=== PATIENT | female | born 1985 | race Caucasian/White ===

== ENCOUNTER 2016-05-20 11:49 | Emergency (ER) | payer BC ==
[2016-05-20] MEDS ORDERED: ORPHENADRINE CITRATE 60MG/2ML VIAL IM ONE (14:02)
[2016-05-20] MEDS ORDERED: KETOROLAC 30 MG/ML VIAL IM ONE (14:02)
--- NOTE | 2016-05-20 14:11 | Emergency Department Record ---
History of Present Illness - General Chief Complaint: Back Pain/Injury Stated Complaint: BACK/NECK PAIN Time Seen by Provider: 05/20/16 12:51 Source: Patient Mode of Arrival: Ambulatory Limitations: No limitations - History of Present Illness Initial Comments: pt has had midline upper back pain for 3 days. she has no known injury. MD Complaint: Back pain Onset/Timin -: Days(s) Similar Symptoms Previously: No Place: Home Radiation: None Severity: Moderate Severity scale (1-10): 7 Quality: Other Consistency: Constant Improves With: Medication Worsens With: None Context: Unknown Associated Symptoms: Denies other symptoms Treatments Prior to Arrival: NSAIDS - Related Data Home Medications Medication Instructions Recorded Confirmed Last Taken Famotidine [Pepcid] 20 mg PO 05/20/16 Unknown Omeprazole [Prilosec] 20 mg PO DAILY 05/20/16 05/20/16 05/20/16 Prenat Vit Comb.10/Iron/FA/Dha 1 tab PO DAILY 05/20/16 05/20/16 05/20/16 [Vitafol-Ob+Dha Combo Pack] Sertraline HCl [Zoloft] 200 mg PO DAILY 05/20/16 05/20/16 05/20/16 Previous Rx's Medication Instructions Recorded Cyclobenzaprine HCl [Flexeril] 10 mg PO TID #14 tablet 05/20/16 Ibuprofen [Motrin] 800 mg PO Q8H PRN #20 tab 05/20/16 Allergies Allergy/AdvReac Type Severity Reaction Status Date / Time Penicillins Allergy HIVES Verified 05/20/16 12:39 Travel Screening - Travel/Exposure Within Last 30 Days Have you traveled within the last 30 days?: No - Travel/Exposure Within Last Year Have you traveled outside the [place] in the last year?: No - Additonal Travel Details Have you been exposed to anyone with a communicable illness?: No - Travel Symptoms Symptom Screening: None Review of Systems Reviewed: No additional complaints except as noted below Constitutional: Reports: As per HPI. Denies: Chills, Fever, Malaise, Night sweats, Weakness, Weight change Eyes: Reports: As per HPI. Denies: Eye discharge, Eye pain, Photophobia, Vision change ENT: Reports: As per HPI. Denies: Congestion, Dental pain, Ear pain, Epistaxis , Hearing loss, Throat pain Respiratory: Reports: As per HPI. Denies: Cough, Dyspnea, Hemoptysis, Stridor, Wheezes Cardiovascular: Reports: As per HPI. Denies: Arrhythmia, Chest pain, Dyspnea on exertion, Edema, Murmurs, Orthopnea, Palpitations, Paroxysmal nocturnal dyspnea, Rheumatic Fever, Syncope Endocrine: Reports: As per HPI. Denies: Fatigue, Heat or cold intolerance, Polydipsia, Polyuria Gastrointestinal: Reports: As per HPI. Denies: Abdominal pain, Constipation, Diarrhea, Hematemesis, Hematochezia, Melena, Nausea, Vomiting Genitourinary: Reports: As per HPI. Denies: Abnormal menses, Discharge, Dyspareunia, Dysuria, Frequency, Hematuria, Incontinence, Retention, Urgency Musculoskeletal: Reports: As per HPI. Denies: Arthralgia, Back pain, Gout, Joint swelling, Myalgia, Neck pain Skin: Reports: As per HPI. Denies: Bruising, Change in color, Change in hair/ nails, Lesions, Pruritus, Rash Neurological: Reports: As per HPI. Denies: Abnormal gait, Confusion, Headache, Numbness, Paresthesias, Seizure, Tingling, Tremors, Vertigo, Weakness Psychiatric: Reports: As per HPI. Denies: Anxiety, Auditory hallucinations, Depression, Homicidal thoughts, Suicidal thoughts, Visual hallucinations Hematological/Lymphatic: Reports: As per HPI. Denies: Anemia, Blood Clots, Easy bleeding, Easy bruising, Swollen glands Past Medical History - SOCIAL HISTORY Smoking Status: Never smoker Alcohol Use: Occassional Drug Use: None - RESPIRATORY Hx Respiratory Disorders: No - CARDIOVASCULAR Hx Cardio Disorders: No - NEURO Hx Neuro Disorders: No - GI Hx GI Disorders: No - Hx Genitourinary Disorders: No - ENDOCRINE Hx Endocrine Disorders: No - MUSCULOSKELETAL Hx Musculoskeletal Disorders: No - PSYCH Hx Psych Problems: No - HEMATOLOGY/ONCOLOGY Hx Hematology/Oncology Disorders: No Family Medical History Any Significant Family History?: Yes Hx Cancer: Grandparents Hx Dementia: Grandparents Hx Diabetes: Grandparents Hx HTN: Father, Mother Physical Exam - General General Appearance: Alert, Oriented x3, Cooperative, Mild distress - Head Head exam: Normal inspection - Eye Eye exam: Normal appearance, PERRL, EOMI Pupils: Normal accommodation - ENT ENT exam: Normal exam, Mucous membranes moist, Normal external ear exam, Normal orophraynx Ear exam: Normal external inspection. negative: External canal tenderness Nasal Exam: Normal inspection. negative: Discharge, Sinus tenderness Mouth exam: Normal external inspection, Tongue normal Teeth exam: Normal inspection. negative: Dental caries Throat exam: Normal inspection. negative: Tonsillar erythema, Tonsillar exudate - Neck Neck exam: Normal inspection. negative: Full ROM, Tenderness - Respiratory Respiratory exam: Normal lung sounds bilaterally. negative: Respiratory distress - Cardiovascular Cardiovascular Exam: Regular rate, Normal rhythm, Normal heart sounds - GI/Abdominal GI/Abdominal exam: Soft, Normal bowel sounds. negative: Tenderness - Rectal Rectal exam: Deferred - exam: Deferred - Extremities Extremities exam: Normal inspection, Full ROM, Normal capillary refill. negative: Tenderness - Back Back exam: Reports: Normal inspection, Tenderness, Vertebral tenderness. Denies : Full ROM, Muscle spasm, Rash noted Image of Body Front/Back: 1 - tender on spine - Neurological Neurological exam: Alert, CN II-XII intact, Normal gait, Oriented X3 - Psychiatric Psychiatric exam: Normal affect, Normal mood - Skin Skin exam: Dry, Intact, Normal color, Warm Course Vital Signs 05/20/16 12:42 Temperature 98 F Pulse Rate 91 H Respiratory 18 Rate Blood Pressure 116/74 Pulse Ox 98 - Reevaluation(s) Reevaluation #1: 05/20/16 14:11 ct shows mild disc disease Disposition Disposition: Discharge Clinical Impression: Thoracic spine pain Disc degeneration Qualifiers: Spinal region: thoracic Qualified Code(s): M51.34 - Other intervertebral disc degeneration, thoracic region Disposition: Home, Self-Care Condition: (1) Good Instructions: Degenerative Disc Disease (ED) Additional Instructions: follow up with family doctor. return sooner if worse. no lifting more then 5 lbs for 5 days Prescriptions: Cyclobenzaprine HCl [Flexeril] 10 mg PO TID #14 tablet Ibuprofen [Motrin] 800 mg PO Q8H PRN #20 tab PRN Reason: Pain - Moderate (5-7) Forms: Patient Portal Access
--- NOTE | 2016-05-24 13:48 | CT SCAN REPORT ---
EXAM: THORACIC SPINE CT WITH TWO DIMENSIONAL REFORMATS HISTORY: THREE DAYS OF UPPER THORACIC PAIN. TECHNIQUE: Contiguous axial images from the lower cervical spine to the L1 level were obtained without contrast. Sagittal and coronal two dimensional reformatted images were obtained for better anatomic delineation. Comparison: None. FINDINGS: Minimal dextroconvex curvature of the thoracic spine. The vertebral body stature is preserved. No acute fracture or subluxation. Mild diffuse degenerative disk disease manifested by disk space narrowing and tiny end plate osteophytes. CT is not sensitive for disk pathology. No narrowing of the osseous central canal at any level. The lungs are clear. The upper abdomen is unremarkable. IMPRESSION: MILD MULTILEVEL DEGENERATIVE DISK DISEASE OF THE THORACIC SPINE WITH MINIMAL DEXTROCONVEX CURVATURE. NO ACUTE PROCESS. JOB [facility]BER: [id number] [facility]
== END 2016-05-20 14:32 | disposition home or self-care (01) ==
LOC: ER 11:49
DX: M51.34 Other intervertebral disc degeneration, thoracic region (principal); M54.2 Cervicalgia; M54.6 Pain in thoracic spine
CPT/HCPCS: 99283; 96372; 99284; 72128; J1885; J2360

== ENCOUNTER 2018-04-28 17:47 | Emergency (ER) | payer BC ==
--- NOTE | 2018-04-28 18:39 | Emergency Department Record ---
History of Present Illness - General Chief Complaint: Abdominal Pain Stated Complaint: ADB PAIN Time Seen by Provider: 04/28/18 18:18 Source: Patient Mode of Arrival: Ambulatory Limitations: No limitations - History of Present Illness Initial Comments: pt woke up this am not feeling well. she developed chest pain substernally and she then started having diarrhea and vomiting all day. she has been vomiting bile. she thinks it is her gallbladder as she has had a problem with that in the past. the pain goes through to her back and wraps around to her back MD Complaint: Abdominal pain Onset/Timin -: Days(s) Location: RUQ Radiation: Back Severity: Moderate Severity scale (1-10): 8 Quality: Aching Consistency: Constant, Intermittent Improves With: Nothing Worsens With: Nothing Associated Symptoms: Diarrhea, Nausea, Vomiting - Related Data Patient : No Previous Rx's Medication Instructions Recorded Ondansetron [Zofran Odt] 4 mg PO Q8H #10 tab.rapdis 04/28/18 Allergies Allergy/AdvReac Type Severity Reaction Status Date / Time Penicillins Allergy HIVES Unverified 04/09/18 11:40 Travel Screening - Travel/Exposure Within Last 30 Days Have you traveled within the last 30 days?: No - Travel/Exposure Within Last Year Have you traveled outside the [place] in the last year?: No - Additonal Travel Details Have you been exposed to anyone with a communicable illness?: No - Travel Symptoms Symptom Screening: None Review of Systems Reviewed: No additional complaints except as noted below Constitutional: Reports: As per HPI. Denies: Chills, Fever, Malaise, Night sweats, Weakness, Weight change Eyes: Reports: As per HPI. Denies: Eye discharge, Eye pain, Photophobia, Vision change ENT: Reports: As per HPI. Denies: Congestion, Dental pain, Ear pain, Epistaxis , Hearing loss, Throat pain Respiratory: Reports: As per HPI. Denies: Cough, Dyspnea, Hemoptysis, Stridor, Wheezes Cardiovascular: Reports: As per HPI, Chest pain. Denies: Arrhythmia, Dyspnea on exertion, Edema, Murmurs, Orthopnea, Palpitations, Paroxysmal nocturnal dyspnea, Rheumatic Fever, Syncope Endocrine: Reports: As per HPI. Denies: Fatigue, Heat or cold intolerance, Polydipsia, Polyuria Gastrointestinal: Reports: As per HPI, Abdominal pain, Diarrhea, Nausea, Vomiting. Denies: Constipation, Hematemesis, Hematochezia, Melena Genitourinary: Reports: As per HPI. Denies: Abnormal menses, Discharge, Dyspareunia, Dysuria, Frequency, Hematuria, Incontinence, Retention, Urgency Musculoskeletal: Reports: As per HPI. Denies: Arthralgia, Back pain, Gout, Joint swelling, Myalgia, Neck pain Skin: Reports: As per HPI. Denies: Bruising, Change in color, Change in hair/ nails, Lesions, Pruritus, Rash Neurological: Reports: As per HPI. Denies: Abnormal gait, Confusion, Headache, Numbness, Paresthesias, Seizure, Tingling, Tremors, Vertigo, Weakness Psychiatric: Reports: As per HPI. Denies: Anxiety, Auditory hallucinations, Depression, Homicidal thoughts, Suicidal thoughts, Visual hallucinations Hematological/Lymphatic: Reports: As per HPI. Denies: Anemia, Blood Clots, Easy bleeding, Easy bruising, Swollen glands Past Medical History - SOCIAL HISTORY Smoking Status: Never smoker Alcohol Use: None Drug Use: None - RESPIRATORY Hx Respiratory Disorders: No - CARDIOVASCULAR Hx Cardio Disorders: No - NEURO Hx Neuro Disorders: No - GI Hx GI Disorders: No - Hx Genitourinary Disorders: No - ENDOCRINE Hx Endocrine Disorders: No - MUSCULOSKELETAL Hx Musculoskeletal Disorders: No - PSYCH Hx Psych Problems: No - HEMATOLOGY/ONCOLOGY Hx Hematology/Oncology Disorders: No Family Medical History Any Significant Family History?: Yes Hx Cancer: Grandparents Hx Dementia: Grandparents Hx Diabetes: Grandparents Hx HTN: Father, Mother Physical Exam - General General Appearance: Alert, Oriented x3, Cooperative, Mild distress - Head Head exam: Normal inspection - Eye Eye exam: Normal appearance, PERRL, EOMI Pupils: Normal accommodation - ENT ENT exam: Normal exam, Mucous membranes moist, Normal external ear exam, Normal orophraynx Ear exam: Normal external inspection. negative: External canal tenderness Nasal Exam: Normal inspection. negative: Discharge, Sinus tenderness Mouth exam: Normal external inspection, Tongue normal Teeth exam: Normal inspection. negative: Dental caries Throat exam: Normal inspection. negative: Tonsillar erythema, Tonsillar exudate - Neck Neck exam: Normal inspection, Full ROM. negative: Tenderness - Respiratory Respiratory exam: Normal lung sounds bilaterally. negative: Respiratory distress - Cardiovascular Cardiovascular Exam: Regular rate, Normal rhythm, Normal heart sounds - GI/Abdominal GI/Abdominal exam: Soft, Normal bowel sounds, Tenderness - Rectal Rectal exam: Deferred - exam: Deferred - Extremities Extremities exam: Normal inspection, Full ROM, Normal capillary refill. negative: Tenderness - Back Back exam: Reports: Normal inspection, Full ROM. Denies: Muscle spasm, Rash noted, Tenderness - Neurological Neurological exam: Alert, CN II-XII intact, Normal gait, Oriented X3 - Psychiatric Psychiatric exam: Normal affect, Normal mood - Skin Skin exam: Dry, Intact, Normal color, Warm Course Vital Signs 04/28/18 18:13 Temperature 98.5 F Pulse Rate [ 91 H Pulse Ox Probe] Respiratory 20 Rate Blood Pressure 124/81 [Left Arm] Pulse Ox 98 - Reevaluation(s) Reevaluation #1: 04/28/18 20:02 pt feels much better. ct is neg. us from 11/06 at [facility] showed solid lesion near gb fossa and were recommending f/u us Medical Decision Making - Lab Data Result diagrams: 04/28/18 18:17 04/28/18 18:17 Disposition Disposition: Discharge Clinical Impression: RUQ abdominal pain, Biliary colic symptom Vomiting Qualifiers: Vomiting type: bilious vomiting Nausea presence: with nausea Qualified Code(s) : R11.14 - Bilious vomiting Disposition: Home, Self-Care Condition: (1) Good Instructions: Biliary Colic (ED), Abdominal Pain (ED), Acute Nausea and Vomiting (ED), Gastroenteritis (ED) Additional Instructions: follow up with family doctor and with dr garcia. have ultrasound of gallbladder. return sooner if worse. low fat diet Prescriptions: Ondansetron [Zofran Odt] 4 mg PO Q8H #10 tab.rapdis Referrals: Sabino Garcia [DOCTOR OF OSTEOPATH] - Forms: Patient Portal Access Quality - Quality Measures Quality Measures: N/A - Blood Pressure Screening Does Patient Have Any of the Following: No Blood Pressure Classification: Pre-Hypertensive BP Reading Systolic Measurement: 124 Diastolic Measurement: 81 Screening for High Blood Pressure: < Pre-Hypertensive BP, F/U Documented > [ [id number]] Pre-Hypertensive Follow-up Interventions: Follow-up with rescreen every year.
[2018-04-28 18:44] LABS: BASO % 0.3 % (0-6); EOS % 2.9 % (0-6); GRAN % 76.6 % (47-80); HEMATOCRIT 45.2 % (35.0-47.0); HEMOGLOBIN 15.6 gm/dl (11.6-16.0); LYMPH % 5.3 % (16-45); MEAN CELL VOLUME 86.4 fl (81-97); MEAN CORPUSCULAR HEMOGLOBIN 29.8 pg (27-33); MEAN CORPUSCULAR HGB CONC 34.5 g/dl (32-36); MEAN PLATELET VOLUME 9.9 fl (7.4-10.4); MONO % 14.9 % (0-9); PLATELET COUNT 350 K/uL (130-400); RED BLOOD COUNT 5.23 M/uL (3.80-5.40); RED CELL DISTRIBUTION WIDTH 12.9 % (11.5-14.5)
[2018-04-28 18:56] LABS: BLOOD UREA NITROGEN 10 mg/dL (6-20); CREATININE 0.6 mg/dL (0.5-0.9); EST GLOMERULAR FILTRATION RATE > 60 mL/min
[2018-04-28 18:57] LABS: LIPASE 13 U/L (13-60); TOTAL PROTEIN 7.7 g/dL (6.6-8.7)
[2018-04-28 18:59] LABS: GLUCOSE,RANDOM 98 mg/dL (74-109)
[2018-04-28 19:02] LABS: ALBUMIN 4.4 g/dL (4.0-5.0); ALKALINE PHOSPHATASE 71 U/L (35-104); ALT/SGPT 19 U/L (<33); AST/SGOT 17 U/L (10.0-35.0); BILIRUBIN,DIRECT < 0.2 mg/dL (0-0.3)
[2018-04-28] MEDS: KETOROLAC 30 MG/ML VIAL IVP ONE (19:02)
[2018-04-28] MEDS: ONDANSETRON HCL IV 4 MG/2 ML VIAL IV ONE (19:04)
[2018-04-28] MEDS: 0.9 % SODIUM CHLORIDE 1,000 ML BAG IV ONE (19:04)
[2018-04-28 19:32] LABS: URINE APPEARANCE CLEAR; URINE BILIRUBIN SMALL (NEGATIVE); URINE BLOOD TRACE-I (NEGATIVE); URINE COLOR YELLOW; URINE GLUCOSE (UA) NEGATIVE (NEGATIVE); URINE KETONE 40 mg/dL (NEGATIVE); URINE LEUKOCYTE ESTERASE NEGATIVE (NEGATIVE); URINE NITRITE NEGATIVE (NEGATIVE); URINE PROTEIN NEGATIVE (NEGATIVE); URINE UROBILINOGEN 0.2 E.U./dL (0.20 - 1.00)
[2018-04-28 19:40] LABS: URINE BACTERIA FEW; URINE EPITHELIAL CELLS 36 - 50 (FEW); URINE MUCUS LIGHT; URINE WBC NONE SEEN (0-2/hpf)
--- NOTE | 2018-05-01 10:12 | CT SCAN REPORT ---
EXAM: CT OF THE ABDOMEN AND PELVIS WITHOUT CONTRAST HISTORY: RIGHT UPPER QUADRANT PAIN WITH NAUSEA AND VOMITING STARTING YESTERDAY. TECHNIQUE: Standard CT imaging of the abdomen and pelvis was obtained without contrast. Comparison: None. FINDINGS: The lung bases are clear. The liver is unremarkable. No calcified stones within the gallbladder. No pericholecystic edema. The common bile duct is not dilated. No peripancreatic fat stranding. The spleen is normal in size. The adrenal glands are normal. No nephrolithiasis or hydronephrosis in the kidneys. No bowel dilatation. The colon and appendix appear normal. No retroperitoneal or mesenteric adenopathy. The aorta is normal without calcified plaque. No free fluid or free air. The bones are unremarkable. IMPRESSION: NEGATIVE NONCONTRAST CT OF THE ABDOMEN AND PELVIS. JOB NUMBER: [id number] [facility]
== END 2018-04-28 20:30 | disposition home or self-care (01) ==
LOC: ER 17:47
DX: K80.50 Calculus of bile duct without cholangitis or cholecystitis without obstruction (principal); R10.11 Right upper quadrant pain; R07.2 Precordial pain; R19.7 Diarrhea, unspecified; R11.14 Bilious vomiting
CPT/HCPCS: 99284 ×2; 96374; 96375; 83690; 85025; 80076; 80048; 81001; 85379; 74176; 93005; 93010; J1885; J2405; J7030

== ENCOUNTER 2018-05-06 08:23 | Day surgery (SDC) | payer BC ==
[~2018-05-06 08:23] MED LIST: ACETAMINOPHEN 1,000 MG/100 ML BTL IV ONE; FAMOTIDINE 20MG TABLET PO ONE; MECLIZINE 25 MG TABLET PO ONE; METOCLOPRAMIDE 10 MG TABLET PO ONE
[2018-05-06] MEDS ORDERED: HYDROCODONE/APAP 5/325MG TABLET PO ONE (08:24)
[2018-05-06] MEDS ORDERED: LIDOCAINE 2% MDV (20MG/ML) 20ML VIAL IV ONE (08:24)
[2018-05-06] MEDS ORDERED: ROCURONIUM BROMIDE 50MG/5ML VIAL IV ONE (08:24)
[2018-05-06] MEDS ORDERED: ONDANSETRON HCL IV 4 MG/2 ML VIAL IVP ONE ×2 (08:24)
[2018-05-06] MEDS ORDERED: LABETALOL HCL 5MG/ML, 20ML VIAL IV ONE (08:24)
[2018-05-06] MEDS ORDERED: HYDROMORPHONE HCL 2 MG/ML VIAL IV ONE (08:24)
[2018-05-06] MEDS ORDERED: SUCCINYLCHOLINE 20 MG/ML 10ML IVP ONE (08:24)
[2018-05-06] MEDS ORDERED: MIDAZOLAM HCL 2MG/2ML VIAL IV ONE (08:24)
[2018-05-06] MEDS ORDERED: BUPIVACAINE 0.25% W/EPI MPF 30ML VIAL IVP ONE (08:24)
[2018-05-06] MEDS ORDERED: SEVOFLURANE 250 ML INH ONE (08:24)
[2018-05-06] MEDS ORDERED: KETOROLAC 30 MG/ML VIAL IVP ONE (08:24)
[2018-05-06] MEDS ORDERED: FENTANYL PF 100MCG/2ML VIAL IV ONE (08:24)
[2018-05-06] MEDS ORDERED: PROPOFOL 10 MG/ML VIAL IV ONE (08:24)
[2018-05-06] MEDS ORDERED: MEPERIDINE PCA 10 MG/ML VIAL IV ONE (08:24)
[2018-05-06] MEDS ORDERED: DEXAMETHASONE 4 MG/ML 1ML VIAL IVP ONE (08:24)
[2018-05-06] MEDS ORDERED: BUPIVACAINE 0.25% W/EPI MPF 30ML VIAL SQ ONE (10:27)
--- NOTE | 2018-05-08 09:00 | Operative Note ---
DATE OF SURGERY: 05/06/2018 Surgeon: Sabino Garcia DO PREOPERATIVE DIAGNOSIS: Cholelithiasis with chronic cholecystitis. POSTOPERATIVE DIAGNOSIS: Cholelithiasis with chronic cholecystitis. OPERATION: Laparoscopic cholecystectomy. Indication: The patient is a 32-year-old female who is having ongoing right subcostal postprandial pain. PROCEDURE: She was therefore brought to the operating room and placed in a supine position. General anesthesia was administered per the department of anesthesia. The patient's abdomen was prepped and draped in the usual sterile fashion. The infraumbilical region was anesthetized with a total of 5 mL of 0.25% Sensorcaine with epinephrine. A 2 cm infraumbilical incision was made. This was carried down to the anterior rectus fascia. This was incised. Chester clamps were placed on the fascial edges and brought up into the wound. Stay sutures of 0 Vicryl were placed. Posterior rectus sheath was identified and incised. The peritoneal cavity was entered bluntly. At this time, a 10 mm blunt Salvador port was placed. Adequate pneumoperitoneum was established. Under direct visualization, additional 5 mm epigastric and two 5 mm right subcostal ports were placed. The patient was rotated into steep reverse Trendelenburg with rotation to left. The gallbladder was identified in the subhepatic space. It was retracted in a cephalad and lateral direction opening up the angle of Calot. The hepatocystic triangle was thoroughly dissected out. There was no aberrant anatomy, no posterior ductal structures. The cystic duct and cystic artery were clearly identified. Each one was doubly clipped and cut in a standard fashion. Gallbladder was then taken off the liver bed with Ulices harmonic. This was then brought out through the umbilical port. Right upper quadrant was checked and noted to be hemostatic. No bleeding. No bile leak. No bowel injury noted. The patient was leveled out. The pneumoperitoneum was released. All ports were removed. The fascia was closed with 0 Vicryl in a [id number] fashion. The skin at all 4 ports was closed with 4-0 Vicryl. The patient was taken to the recovery room in satisfactory condition. FINDINGS AT THE TIME OF SURGERY: Chronic cholecystitis. CC: Dr. Tacho VALENZUELA
== END 2018-05-06 12:45 | disposition home or self-care (01) ==
LOC: SUR 08:23
PROVIDERS: ATTEND Surgery
DX: K80.10 Calculus of gallbladder with chronic cholecystitis without obstruction (principal); F17.210 Nicotine dependence, cigarettes, uncomplicated; F12.90 Cannabis use, unspecified, uncomplicated
CPT/HCPCS: J0330; J1885; J2175; J2405